=== PATIENT | male | born 1985 | race Caucasian/White ===

== ENCOUNTER 2021-03-01 14:15 | Emergency (ER) | payer OTHER, SELFPAY ==
--- NOTE | ~2021-03-01 | XR_ITS ---
EXAMINATION: XR forearm RT 2V EXAM DATE: 03/01/2021 14:42 INDICATION: Hyperextension injury. TECHNIQUE: Right forearm frontal and lateral projections obtained and reviewed. There is no prior st udy for comparison. FINDINGS: There are no acute fractures or dislocations identified. There is no subcutaneous gas. Th e soft tissue is unremarkable. There are no radiopaque foreign bodies. IMPRESSION: 1. XR forearm RT 2V exam without acute osseous findings. Reviewed, dictated and finalized at location B.
[2021-03-01 14:26] VITALS: BP 144/98; PULSE 66; RESP 16; TEMP 37; O2SAT 99
--- NOTE | 2021-03-01 14:42 | ED.UPPEXIN ---
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 Patient states about a week ago he sustained a minor injury to his forearm, when his child landed on his outstretched arm during horseplay. . He complains of mild pain mostly at the elbow, that radiates distally to wrist. No bleeding, deformity, other injury Related Data Allergies Allergy/AdvReac Type Severity Reaction Status Date / Time No Known Allergies Allergy Verified 03/01/21 14:35 Review of Systems Review of Systems: General/Constitutional: No weight loss,fever Eyes: N0: Redness,discharge Ears/Nose/Throat: No: Epistaxis,ear discharge Respiratory: Denies: Hemoptysis Gastrointestinal: No Vomiting, Bleeding-rectal Skin: No Lumps, eruption Neurologic: No Focal Weakness,Sz Hematologic: Denies: Petechiae/Purpura Psychiatric: No: Suicida ideationl All Other Systems: Reviewed and Negative [facility] Comments At time of signature, agree with nursing past medical, surgical, social and family history. There is no relevant family history pertinent to the presenting complaint Exam Narrative: General Appearance: Well appearing, conjunctiva clear Mouth/Throat: Normal appearing, Normal lips, Supple Respiratory: Airway patent, No respiratory distress MS-forearm: Nl strength (mostly intact, almost unlimited flexion/extension w/o pain), Tenderness ( lateral > medial epicondyle, without decreased ROM), no swelling; no scaphoid or triangular ligament tenderness Skin: Warm, Dry, Normal color Neurological: A&O x3, Speech clear, CN II-XII intact Psychiatric: Normal mood, Normal affect Course Vital Signs Vital signs: Vital Signs Temperature 98.6 F 03/01/21 14:26 Pulse Rate 66 03/01/21 14:26 Respiratory Rate 16 03/01/21 14:26 Blood Pressure 144/98 H 03/01/21 14:26 Pulse Oximetry 99 03/01/21 14:26 Temperature 98.6 F 03/01/21 14:26 Pulse Rate 66 03/01/21 14:26 Respiratory Rate 16 03/01/21 14:26 Blood Pressure 144/98 H 03/01/21 14:26 Pulse Oximetry 99 03/01/21 14:26 Discharge Plan Discharge Clinical Impression: Muscle strain of right forearm Qualifiers: Encounter type: initial encounter Qualified Code(s): S56.911A - Strain of unspecified muscles, fascia and tendons at forearm level, right arm, initial encounter Patient Disposition: Home, Self-Care Condition: Stable Instructions: Muscle Strain (ED) Prescriptions: New prednisone 20 mg tablet 60 mg PO DAILY Qty: 15 RF: 0 tramadol 50 mg tablet 50 - 75 mg PO TID PRN (Reason: pain) Qty: 20 RF: 0 Follow-up/Referrals: PHYSICIAN NOT ON STAFF,NONSTAFF [Primary Care Provider] -
== END 2021-03-01 15:10 | disposition home or self-care (01) ==
PROVIDERS: Emergency Provider Emergency Medicine
DX: M79.631 Pain in right forearm (principal); S56.911A Strain of unspecified muscles, fascia and tendons at forearm level, right arm, initial encounter; W51.XXXA Accidental striking against or bumped into by another person, initial encounter; Y93.83 Activity, rough housing and horseplay; Y92.9 Unspecified place or not applicable
CPT/HCPCS: 73090; 99213; G0463